=== PATIENT | male | born 1965 | race Caucasian/White ===

== ENCOUNTER 2017-07-18 08:39 | Emergency (ER) | payer MEDICARE ==
[2017-07-18 09:14] LABS: BASOPHILS 0.2 % (0-2); EOSINOPHILS 3.7 % (0-7); HEMATOCRIT 37.8 % (42.0-54.0); HEMOGLOBIN 13.6 g/dL (13.5-17.5); IMMATURE GRANULOCYTES 0.5 % (0-5); LYMPHOCYTES 38.5 % (15-50); MCH 33.5 pg (26.0-34.0); MCV 93.1 fL (80.0-100.0); MEAN PLATELET VOLUME 10.5 fL (7.4-10.4); MONOCYTES 16.1 % (2-11); PLATELET COUNT 76 10x3/uL (130-400); RBC 4.06 10x6/uL (4.20-6.10); RDW 12.3 % (11.5-14.5)
[2017-07-18 09:17] LABS: APTT 36.2 SECONDS (22.8-39.4); INR 1.29 (0.85-1.17); PROTIME 15.7 SECONDS (11.6-15.0)
[2017-07-18 09:18] LABS: D-DIMER-QUANTITATIVE 0.28 ug/mLFEU (0.20-0.54)
[2017-07-18 09:28] LABS: ALKALINE PHOSPHATASE 39 U/L (46-116); ALT (SGPT) 16 U/L (10-68); BILIRUBIN - TOTAL 0.57 mg/dL (0.2-1.3); CALC OSMOLALITY 271 mosm/kg (275-300); CALCIUM 8.4 mg/dL (8.5-10.1); CARBON DIOXIDE 25.5 mmol/L (21.0-32.0); CHLORIDE - SERUM 95 mmol/L (98-107); CREATININE - SERUM 0.9 mg/dL (0.6-1.3); GLUCOSE 82 mg/dL (74-106); POTASSIUM - SERUM 3.8 mmol/L (3.5-5.1); PROTEIN - SERUM 6.3 g/dL (6.4-8.2); SODIUM 138 mmol/L (136-145); UREA NITROGEN 5 mg/dL (7-18); eGFR NON AFRICAN AMERICAN > 90 mL/min (90-120)
[2017-07-18 09:29] LABS: PLATELET ESTIMATE DECREASED
[2017-07-18 09:39] LABS: CKMB 1.1 U/L (0.0-3.6); CREATINE KINASE 48 UL (21-232)
[2017-07-18 09:41] LABS: TROPONIN-I 0.016 ng/mL (0.000-0.060)
[2017-07-18 10:18] LABS: APPEARANCE CLEAR (CLEAR); COLOR STRAW (YELLOW); NITRITE NEGATIVE (NEGATIVE); PROTEIN NEGATIVE (NEGATIVE)
[2017-07-18 10:19] LABS: BILIRUBIN NEGATIVE (NEGATIVE); GLUCOSE NEGATIVE (NEGATIVE); KETONE NEGATIVE (NEGATIVE); UROBILINOGEN NORMAL (NORMAL)
== END 2017-07-18 14:25 | disposition home or self-care (01) ==
LOC: D.ER 08:39
PROVIDERS: Family Medicine
DX: R53.1 Weakness (principal); J18.9 Pneumonia, unspecified organism; Z87.820 Personal history of traumatic brain injury

== ENCOUNTER → 2017-09-16 08:57 | Outpatient (CLI) | payer MEDICARE ==
[2017-09-16 09:42] LABS: CHOL - HDL RATIO 3.2 ratio (2.3-4.9); LDL-HDL RATIO 1.9 ratio (1.5-3.5); VALPROIC ACID (DEPAKOTE) 105.8 ug/mL (50.0-100.0)
== END | disposition home or self-care (01) ==
LOC: D.LABREF 08:57
PROVIDERS: Psychiatry & Neurology Psychiatry
DX: G40.909 Epilepsy, unspecified, not intractable, without status epilepticus (principal); E78.5 Hyperlipidemia, unspecified

== ENCOUNTER 2017-10-10 11:52 | Emergency (ER) | payer MEDICARE ==
[~2017-10-10] VITALS: Ht 190.5 cm; Wt 69.5 kg
[2017-10-10 12:17] VITALS: Ht 190.5 cm; Wt 69.5 kg
[2017-10-10] MEDS ORDERED: HALDOL5 MG PO (12:20)
[2017-10-10] MEDS ORDERED: DEPAKOTE ER500 MG PO (12:20)
[2017-10-10] MEDS ORDERED: COMPAZINE5 MG PO (12:21)
[2017-10-10] MEDS ORDERED: KEFLEX500 MG PO (12:21)
[2017-10-10 13:11] LABS: BASOPHILS 0.3 % (0-2); EOSINOPHILS 1.1 % (0-7); HEMOGLOBIN 16.6 g/dL (13.5-17.5); IMMATURE GRANULOCYTES 0.3 % (0-5); LYMPHOCYTES 30.3 % (15-50); MCH 33.7 pg (26.0-34.0); MCHC 35.3 g/dL (31.0-37.0); MCV 95.5 fL (80.0-100.0); MEAN PLATELET VOLUME 9.5 fL (7.4-10.4); MONOCYTES 12.8 % (2-11); NEUTROPHILS 55.2 % (40-80); PLATELET COUNT 200 10x3/uL (130-400); RBC 4.92 10x6/uL (4.20-6.10); RDW 12.6 % (11.5-14.5); WBC 6.1 10x3/uL (4.8-10.8)
[2017-10-10 13:51] LABS: ALBUMIN 4.4 g/dL (3.4-5.0); ALKALINE PHOSPHATASE 57 U/L (46-116); ALT (SGPT) 14 U/L (10-68); CALC OSMOLALITY 269 mosm/kg (275-300); CALCIUM 10.1 mg/dL (8.5-10.1); CARBON DIOXIDE 27.7 mmol/L (21.0-32.0); CHLORIDE - SERUM 101 mmol/L (98-107); CREATININE - SERUM 0.7 mg/dL (0.6-1.3); GLUCOSE 89 mg/dL (74-106); POTASSIUM - SERUM 4.5 mmol/L (3.5-5.1); PROTEIN - SERUM 8.3 g/dL (6.4-8.2); SODIUM 137 mmol/L (136-145); UREA NITROGEN 5 mg/dL (7-18); VALPROIC ACID (DEPAKOTE) 100.4 ug/mL (50.0-100.0); eGFR NON AFRICAN AMERICAN > 90 mL/min (90-120)
[2017-10-10 14:22] LABS: APPEARANCE CLEAR (CLEAR); BILIRUBIN NEGATIVE (NEGATIVE); COLOR DK YELLOW (YELLOW); GLUCOSE NEGATIVE (NEGATIVE); KETONE NEGATIVE (NEGATIVE); NITRITE NEGATIVE (NEGATIVE); PROTEIN TRACE mg/dL (NEGATIVE); UROBILINOGEN NORMAL (NORMAL)
[2017-10-10 16:46] LABS: UDS - AMPHET NEGATIVE QUAL (NEGATIVE); UDS - BARB NEGATIVE QUAL (NEGATIVE); UDS - BENZO NEGATIVE QUAL (NEGATIVE); UDS - COCAINE NEGATIVE QUAL (NEGATIVE); UDS - OPIATE NEGATIVE QUAL (NEGATIVE); UDS - PCP NEGATIVE QUAL (NEGATIVE); UDS - THC NEGATIVE QUAL (NEGATIVE)
[2017-10-10 18:01] VITALS: BP 110/69
== END 2017-10-10 18:00 | disposition home or self-care (01) ==
LOC: D.ER 11:52
PROVIDERS: Family Medicine
DX: R56.9 Unspecified convulsions (principal); Z87.820 Personal history of traumatic brain injury; I10 Essential (primary) hypertension

== ENCOUNTER → 2020-09-18 12:08 | Outpatient (CLI) | payer MEDICARE ==
[2017-10-10 12:17] VITALS: BMI 19.1
[~2020-09-18 12:08] MED LIST: COMPAZINE5 MG PO; DEPAKOTE ER500 MG PO; HALDOL5 MG PO; KEFLEX500 MG PO
== END | disposition home or self-care (01) ==
LOC: D.RAD 12:08
PROVIDERS: ATTEND Emergency Medicine
DX: M25.512 Pain in left shoulder (principal)